=== PATIENT | female | born 1975 | race Caucasian/White ===

== ENCOUNTER 2022-03-20 14:51 | Outpatient (CLI) | payer BC, SELFPAY ==
--- NOTE | 2022-03-20 15:00 | CRLHL7_ITS ---
For Patients: As a result of the Century Cures Act, medical imaging exams and procedure reports are released immediately into your electronic medical record. You may view this report before your referring provider. If you have questions, please contact your health care provider. BILATERAL SCREENING MAMMOGRAM WITH COMPUTER-AIDED DETECTION TECHNIQUE: CC and MLO views were obtained. These mammographic images have been obtained using full-field digital technique. These mammographic images were interpreted with the benefit of computer-aided detection. COMPARISON FILM: 03/16/21, 12/17/18, 07/31/17. FINDINGS: There are scattered areas of fibroglandular density IMPRESSION: There is no radiographic evidence for malignancy. ASSESSMENT: BI-RADS Category 1: Negative RECOMMENDATION: Routine screening mammogram in 1 year. A lay language report of this examination will be provided to the patient. Gustavo Toledo M.D. Diagnostic Radiologist [email or web address] / be/Dictated by: Gustavo Toledo MD @ 03/21/2022 8:34:00 AM (Electronically Signed)
== END 2022-03-20 14:52 | disposition home or self-care (01) ==
LOC: MAMMO 14:52
PROVIDERS: PCP Physician Assistant Medical; Visit Provider Physician Assistant Medical
DX: Z12.31 Encounter for screening mammogram for malignant neoplasm of breast (principal)
CPT/HCPCS: 77067

== ENCOUNTER 2023-06-05 11:21 | Outpatient (CLI) | payer BC, SELFPAY ==
--- NOTE | 2023-06-05 11:30 | CRLHL7_ITS ---
For Patients: As a result of the Century Cures Act, medical imaging exams and procedure reports are released immediately into your electronic medical record. You may view this report before your referring provider. If you have questions, please contact your health care provider. BILATERAL SCREENING MAMMOGRAM WITH COMPUTER-AIDED DETECTION AND TOMOSYNTHESIS TECHNIQUE: CC and MLO views were obtained. These mammographic images have been obtained using full-field digital technique. These mammographic images were interpreted with the benefit of computer-aided detection. Breast Tomosynthesis was used in this interpretation. COMPARISON FILM: 2D 03/20/22, 03/16/21, 12/17/18. FINDINGS: There are scattered areas of fibroglandular density. IMPRESSION: There is no radiographic evidence for malignancy. ASSESSMENT: BI-RADS Category 1: Negative RECOMMENDATION: Routine screening mammogram in 1 year. A lay language report of this examination will be provided to the patient. Gustavo Toledo M.D. Diagnostic Radiologist [email or web address] SP/Dictated by: Gustavo Toledo MD @ 06/08/2023 11:47:00 AM (Electronically Signed)
== END 2023-06-05 11:22 | disposition home or self-care (01) ==
LOC: MAMMO 11:22
PROVIDERS: PCP Physician Assistant Medical; Visit Provider Physician Assistant Medical
DX: Z12.31 Encounter for screening mammogram for malignant neoplasm of breast (principal)
CPT/HCPCS: 77063; 77067

== ENCOUNTER 2023-10-08 09:01 | Outpatient (CLI) | payer BC, SELFPAY | END 2023-10-08 09:02 | disposition home or self-care (01) | LOC: NFLDREF 10-26 08:19 | PROVIDERS: PCP Physician Assistant Medical; Referring Provider Physician Assistant Medical; Visit Provider Physician Assistant Medical | DX: Z00.00 Encounter for general adult medical examination without abnormal findings (principal); I10 Essential (primary) hypertension; R73.09 Other abnormal glucose; D72.829 Elevated white blood cell count, unspecified | CPT/HCPCS: 80053; 80061 ==

== ENCOUNTER 2023-10-11 09:12 | Outpatient (CLI) | payer BC, SELFPAY ==
[2023-10-11 15:57] LABS: Chlamydia DNA Amplified* NOT DETECTED (No Detected); GC DNA Amplified* NOT DETECTED (No Detected)
--- NOTE | 2023-10-24 08:43 | ONC.NURNOTE ---
Received hematology referral for patient. Printed labs, and looked at last provider note. Will discuss with hematology at meeting next week to determine if more testing needed, urgency, and whether appropriate for virtual visit. LMOM for patient stating this.
== END 2023-10-11 09:13 | disposition home or self-care (01) ==
PROVIDERS: PCP Physician Assistant Medical; Visit Provider Physician Assistant Medical
DX: D72.829 Elevated white blood cell count, unspecified (principal); I10 Essential (primary) hypertension; R73.09 Other abnormal glucose; Z11.3 Encounter for screening for infections with a predominantly sexual mode of transmission
CPT/HCPCS: 83021; 84443; 85045; 86157; 87086; 87491; 87591

== ENCOUNTER 2024-01-01 14:00 | Outpatient (RCR) | payer BC, SELFPAY ==
[2023-12-18 14:16] LABS: Basophils Percent Auto 0.6 % (0.0-3.0); Eosinophils Percent Auto 1.2 % (0.0-7.0); Hematocrit 41.1 % (33.0-51.0); Immature Granulocytes Pct Auto 0.1 %; Lymphocytes Percent Auto 26.4 % (20-44); Mean Corpuscular HGB Conc 32 gm/dL (32-36); Mean Corpuscular Hemoglobin 25 pg (26-34); Mean Corpuscular Volume 80 fL (80-100); Monocytes Percent Auto 6.6 % (0.0-11.0); Neutrophils Percent Auto 65.1 % (42.0-72.0); Platelet Count* 338 K/uL (140-440); RDW Coefficient of Variation % 16.6 % (11.5-15.5); Red Blood Count 5.14 m/uL (4.00-5.20); White Blood Count* 11.42 K/uL (4.50-11.00)
[2023-12-18 14:27] LABS: Slide Review Reflex No
[2023-12-18 15:41] LABS: Immature Reticulocyte Fraction 19.2 % (3.0-15.9); Reticulocyte Percent 1.6 % (0.5-2.0); Reticulocytes Absolute 0.08 # (0.03-0.08)
[2023-12-18 16:07] LABS: Albumin* 4.2 g/dL (3.3-5.0)
[2023-12-18 16:10] LABS: Alanine Aminotransferase* 34 U/L (4-35); Alkaline Phosphatase* 61 U/L (40-150); Aspartate Amino Transferase* 37 U/L (12-35); Bilirubin Direct* 0.3 mg/dL (0.0-0.5); Bilirubin Total* 0.4 mg/dL (0.1-1.5); Lactate Dehydrogenase* 195 U/L (120-246); Total Protein* 7.1 g/dL (6.0-8.3)
[2023-12-20 22:14] LABS: Haptoglobin 187 mg/dL (30-200)
[2023-12-21 00:41] LABS: Immunoglobulin A 251 mg/dL (68-408); Immunoglobulin G 948 mg/dL (768-1632); Immunoglobulin M 133 mg/dL (35-263)
[2023-12-21 21:09] LABS: Albumin 3.74 g/dL (3.75-5.01); Alpha 1 Globulin 0.31 g/dL (0.19-0.46); Alpha 2 Globulin 0.68 g/dL (0.48-1.05); Total Protein, Serum 6.7 g/dL (6.3-8.2)
== END 2024-06-15 23:59 | disposition home or self-care (01) ==
LOC: CCIC 14:00
PROVIDERS: Clinical Nurse Specialist; PCP Physician Assistant Medical; Referring Provider Physician Assistant Medical; Visit Provider Internal Medicine Hematology & Oncology
DX: R76.8 Other specified abnormal immunological findings in serum (principal); D72.829 Elevated white blood cell count, unspecified
CPT/HCPCS: 36415; 80076; 82784; 83010; 83615; 84165; 85025; 85045; 86157; 86880; 99202; 99204; 99205; 99213

== ENCOUNTER 2024-01-14 16:10 | Outpatient (CLI) | payer BC, SELFPAY ==
[2024-01-15 00:24] LABS: Chlamydia DNA Amplified* NOT DETECTED (No Detected); GC DNA Amplified* NOT DETECTED (No Detected)
== END 2024-01-14 16:11 | disposition home or self-care (01) ==
LOC: LKVREF 16:10
PROVIDERS: PCP Physician Assistant Medical; Visit Provider Physician Assistant Medical
DX: Z00.00 Encounter for general adult medical examination without abnormal findings (principal); E66.9 Obesity, unspecified; I10 Essential (primary) hypertension; E11.9 Type 2 diabetes mellitus without complications; L30.4 Erythema intertrigo
CPT/HCPCS: 82043; 82570; 82607; 87491; 87591

== ENCOUNTER 2024-07-22 18:24 | Outpatient (CLI) | payer BC, SELFPAY ==
--- NOTE | 2024-07-22 18:40 | CRLHL7_ITS ---
For Patients: As a result of the Century Cures Act, medical imaging exams and procedure reports are released immediately into your electronic medical record. You may view this report before your referring provider. If you have questions, please contact your health care provider. BILATERAL SCREENING MAMMOGRAM WITH COMPUTER-AIDED DETECTION AND TOMOSYNTHESIS TECHNIQUE: CC and MLO views were obtained. These mammographic images have been obtained using full-field digital technique. These mammographic images were interpreted with the benefit of computer-aided detection. Breast Tomosynthesis was used in this interpretation. COMPARISON FILM: 06/05/23, 03/20/22, 03/16/21. FINDINGS: The breasts are almost entirely fatty. IMPRESSION: There is no radiographic evidence for malignancy. ASSESSMENT: BI-RADS Category 1: Negative RECOMMENDATION: Routine screening mammogram in 1 year. A lay language report of this examination will be provided to the patient. Gustavo Toledo M.D. Diagnostic Radiologist [email or web address] SP/Dictated by: Gustavo Toledo MD @ 07/23/2024 10:21:00 AM (Electronically Signed)
== END 2024-07-22 18:25 | disposition home or self-care (01) ==
LOC: MAMMO 18:25
PROVIDERS: PCP Physician Assistant Medical; Visit Provider Physician Assistant Medical
DX: Z12.31 Encounter for screening mammogram for malignant neoplasm of breast (principal)
CPT/HCPCS: 77063; 77067

== ENCOUNTER 2024-12-10 10:45 | Outpatient (CLI) | payer BC, SELFPAY | END 2024-12-10 10:46 | disposition home or self-care (01) | PROVIDERS: PCP Physician Assistant Medical; Visit Provider Physician Assistant Medical | DX: E11.9 Type 2 diabetes mellitus without complications (principal); R20.2 Paresthesia of skin; Z79.899 Other long term (current) drug therapy | CPT/HCPCS: 80053; 82043; 82306; 82570; 82607; 84443 ==

== ENCOUNTER 2025-01-20 10:19 | Outpatient (CLI) | payer BC, SELFPAY ==
[2025-01-20 11:01] LABS: PCR FLU A Negative PCR FLU A (Negative); PCR FLU B Negative PCR FLU B (Negative); PCR RSV Negative PCR RSV (Negative); SARS PCR* Negative SARS-CoV-2 (Negative)
== END 2025-01-20 10:20 | disposition home or self-care (01) ==
LOC: FRMREF 10:19
PROVIDERS: PCP Physician Assistant Medical; Visit Provider Physician Assistant Medical
DX: R50.9 Fever, unspecified (principal); J02.9 Acute pharyngitis, unspecified
CPT/HCPCS: 87631